=== PATIENT | male | born 1990 | race African-American/Black ===

== ENCOUNTER 2018-01-12 20:55 | Emergency (ER) | payer OTHER ==
[~2018-01-12] VITALS: Ht 182.9 cm; Wt 90.7 kg
[2018-01-12 21:15] LABS: URINE BILIRUBIN NEGATIVE (Negative); URINE BLOOD 2+ (Negative); URINE CLARITY CLEAR; URINE COLOR YELLOW; URINE GLUCOSE-RANDOM NEGATIVE (Negative); URINE KETONES NEGATIVE (Negative); URINE LEUKOCYTES-REFLEX NEGATIVE (Negative); URINE NITRITE-REFLEX NEGATIVE (Negative); URINE PROTEIN NEGATIVE (Negative); URINE SPECIFIC GRAVITY >= 1.030 (1.005-1.030); URINE UROBILINOGEN 0.2 E.U./dl (0.2-1.0)
[2018-01-12 21:44] LABS: BACTERIA-REFLEX None Seen /HPF (None Seen); CASTS None Seen /LPF (None Seen); CRYSTALS None Seen /LPF (None Seen); SQUAMOUS 0-3 Few /LPF (0-3); URINE RBC 0-2 Rare /HPF (0-2); URINE WBC-REFLEX None Seen /HPF (0-5)
[2018-01-12] MEDS ORDERED: CIPROFLOXACIN500 M1 PO (22:35)
[2018-01-12 22:40] VITALS: BP 136/88
== END 2018-01-12 22:41 | disposition home or self-care (01) ==
LOC: M.ERS 20:55
PROVIDERS: Emergency Medicine
DX: R31.9 Hematuria, unspecified (principal); F17.210 Nicotine dependence, cigarettes, uncomplicated

== ENCOUNTER 2018-10-19 20:36 | Emergency (ER) | payer OTHER ==
[~2018-10-19] VITALS: Ht 182.9 cm; Wt 81.7 kg
[~2018-10-19 20:36] MED LIST: CIPROFLOXACIN500 M1 PO
[2018-10-19] MEDS ORDERED: FLEXERIL PO (22:18)
[2018-10-19] MEDS ORDERED: IBUPROFEN 800800 MG PO (22:18)
[2018-10-19 22:35] VITALS: BP 136/100
== END 2018-10-19 22:36 | disposition home or self-care (01) ==
LOC: M.ERS 20:36
DX: M62.830 Muscle spasm of back (principal); M54.5 Low back pain; F17.210 Nicotine dependence, cigarettes, uncomplicated; V89.2XXA Person injured in unspecified motor-vehicle accident, traffic, initial encounter; Y93.89 Activity, other specified; Y92.89 Other specified places as the place of occurrence of the external cause; Y99.8 Other external cause status